=== PATIENT | female | born 1955 | race Caucasian/White ===

== ENCOUNTER → 2020-12-23 | Outpatient (CLI) | payer MEDICARE, BC ==
[~2020-12-23] MED LIST: ATOR20 PO; Aspirin EC81 MG PO; OMEP20ER PO; Prinivil10 MG PO; Vitamin D2000 UNIT PO
== END | disposition home or self-care (01) ==
LOC: LAB SHORT 12:02 → LAB 12:02
DX: D48.5 Neoplasm of uncertain behavior of skin (principal); L72.11 Pilar cyst
CPT/HCPCS: 88304

== ENCOUNTER → 2023-02-04 | Outpatient (CLI) | payer MEDICARE | END | disposition home or self-care (01) | LOC: LAB SHORT 17:06 → LAB 17:06 | DX: N39.0 Urinary tract infection, site not specified (principal) | CPT/HCPCS: 87077; 87086; 87186 ==

== ENCOUNTER → 2025-02-14 | Outpatient (CLI) | payer OTHER | LOC: LAB SHORT 17:21 → LAB 17:21 | DX: N39.0 Urinary tract infection, site not specified (principal) | CPT/HCPCS: 87077; 87086; 87186 ==